=== PATIENT | male | born 2000 | race Caucasian/White ===

== ENCOUNTER 2025-02-10 04:38 | Emergency (ER) | payer BC, SELFPAY ==
[2025-02-10 04:39] VITALS: BP 160/88
[2025-02-10 04:53] VITALS: BP 132/75
[2025-02-10 05:00] VITALS: BP 128/78
[2025-02-10] MEDS: PEPCID 20 MG IV (05:00)
[2025-02-10] MEDS: BENADRYL 50 MG IV (05:01)
--- NOTE | 2025-02-10 05:15 | ED.GENMED ---
History of Present Illness
General
Chief Complaint: Allergic Reaction
Source: patient and family
Exam Limitations: none
Time Seen by Provider: 02/10/25 04:56
Nursing documentation reviewed up to this point in time: agreed with
History of Present Illness
History of Present Illness:
24-year-old male history of peanut allergies allergic to some peanut snack had hives vomited up some Benadryl took an EpiPen's feeling a bit better here he is red swollen itchy but states he is feeling better does have a stuffy nose no lip swelling
Past History
Past History
ED Past Medical History: Other (Peanut allergy)
Social History
Tobacco: Non-smoker
Alcohol: None
Drug: None
Personal:
Living: with family
Employment: Employed
Review of Systems
Review of Systems
All Other Systems: Not applicable
Constitutional: Denies fever
EENT: Reports mouth swelling
Respiratory: Denies trouble breathing
ABD/GI: Reports abdominal pain
Skin: Reports itching and rash
Neurological: Reports no symptoms
Phy Exam
Physical Exam
Physical Exam:
Physical Exam
General: no apparent distress, not acutely ill
Neck: No lip swelling no tongue swelling
Heart: s1/s2 regular rate and rhythm, no murmur. equal radial pulses.
Lungs: No wheeze
Abdomen: Nontender
Neuro: alert and oriented. no focal neurological deficits
Skin: Urticaria with erythema
Psychiatric: well kept. interactive and cooperative
Extremities: no edema.
Course
Orders/Labs/Results
Orders:
Orders
02/10/25 04:56
Diphenhydramine [Benadryl] 50 mg .ROUTE .STK-MED ONE
02/10/25 04:57
Famotidine [Pepcid] 20 mg .ROUTE .STK-MED ONE
02/10/25 05:00
Famotidine [Pepcid] 20 mg IV NOW STA
02/10/25 05:01
Diphenhydramine [Benadryl] 50 mg IV NOW STA
Diphenhydramine [Benadryl] 50 mg 0.9% Sodium Chloride 50 ml [Nss] 50 ml IV ONCE
Vital Signs
Initial and Last Documented VS:
Initial Vital Signs
Temp Pulse Resp BP Pulse Ox
98 F 100 22 160/88 97
02/10/25 04:39 02/10/25 04:39 02/10/25 04:39 02/10/25 04:39 02/10/25 04:39
Last Documented Vital Signs
Temp Pulse Resp BP Pulse Ox
98 F 74 14 113/63 97
02/10/25 04:39 02/10/25 06:00 02/10/25 06:00 02/10/25 06:00 02/10/25 06:04
MDM/Problems Addressed
Differential Diagnosis Includes:
Peanut allergic reaction anaphylaxis
MDM/Problems Addressed:
Allergic reaction
*Pulse Oximetry
SaO2: 97
Oxygen Mode of Delivery: Room air
Patient hypoxic: no
*Concrete Bucket Loader Interpretation
Rate: normal
Interpretation: normal
Heart Rate: 78
Rhythm: sinus
*Critical Care Note
Total Time (30-74mins, 75-104mins- exclusive of procedures): Not Applicable
Update Note
Update Note:
Update patient with a moderate allergic reaction got some epi will watch for any recurrence, the meantime give a dose of Benadryl because he vomited up and some Pepcid
6:10 AM update patient feeling better
ED Attending Note
-
Portions of this chart may have been created with voice recognition software.� Occasional wrong word or��sound alike� substitutions may have occurred due to the inherent limitations of voice recognition software.
Discharge Plan
Departure
Patient Disposition: Home (Routine Discharge)
Date of Disposition: 02/10/25
Time of Disposition: 06:04
Patient with high blood pressure during this ER visit?: No
Condition: Good
Discharge Problem:
Allergic reaction to peanut
Instructions: Hives (DC)
Prescriptions:
New
epinephrine [EpiPen 2-Steven] 0.3 mg/0.3 mL auto-injector
0.3 mg IM Q5-15M PRN (Reason: anaphylaxis) Qty: 2 2RF
Referrals:
UNKNOWN - PT DOES,NOT KNOW [Family Provider]
Interventions
Interventions:
*Risk Screen - Suicide Last Done: 02/10/25 04:39
*General Assessment Last Done: 02/10/25 04:50
*Neglect/Abuse Screening Last Done: 02/10/25 04:39
*ED- Fall Risk Assessment Last Done: 02/10/25 04:50
*ED COVID-19 Vaccine History Last Done: 02/10/25 04:50
ED- Cardiac Assessment Last Done: 02/10/25 04:50
ED- Pulmonary Assessment Last Done: 02/10/25 04:50
ED-Skin Assessment Last Done: 02/10/25 04:50
Discharge Date and Time
Print Language: FAROESE
[2025-02-10 06:00] VITALS: BP 113/63
== END 2025-02-10 06:23 | disposition home or self-care (01) ==
LOC: EMR 04:38
PROVIDERS: EMERGENCY PHYSICIAN Emergency Medicine
DX: T78.1XXA Other adverse food reactions, not elsewhere classified, initial encounter (principal); L50.9 Urticaria, unspecified; X58.XXXA Exposure to other specified factors, initial encounter; Z91.010 Allergy to peanuts
CPT/HCPCS: 99284; 96374; 96375